=== PATIENT | male | born 1990 | race Caucasian/White ===

== ENCOUNTER 2017-01-15 09:54 | Emergency (ER) | payer SELFPAY ==
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
[2017-01-15 10:14] VITALS: BP 133/72
[2017-01-15] MEDS ORDERED: Tetan/Diph/Pertus SYR(Tdap)* 0.5 ML SYR(BOOSTRIX) use SYR IM ONE (10:14)
== END 2017-01-15 10:23 | disposition home or self-care (01) ==
LOC: UCEAST 09:54
DX: S60.511A Abrasion of right hand, initial encounter (principal); W50.4XXA Accidental scratch by another person, initial encounter; S20.219A Contusion of unspecified front wall of thorax, initial encounter; Z88.2 Allergy status to sulfonamides
CPT/HCPCS: 90471; 90715; 99211; G0463

== ENCOUNTER 2017-06-16 16:21 | Emergency (ER) | payer SELFPAY ==
[2017-06-16] MEDS ORDERED: PPD test dose* 5 TU/0.1 ML TEST (*USE PPD ORDER SET*) ONE (16:53)
== END 2017-06-16 17:00 | disposition home or self-care (01) ==
LOC: OHEAST 16:21
DX: Z02.1 Encounter for pre-employment examination (principal)
CPT/HCPCS: 99201; G0463